=== PATIENT | female | born 1970 | race Caucasian/White ===

== ENCOUNTER 2017-02-26 20:43 | Emergency (ER) | payer MEDICARE ==
[~2017-02-26 20:43] MED LIST: ANTIVERT12.5 MG PO; NEXIUM40 MG PO; PHENERGAN25 M1 PO; PROAIR HFA8.5 GM INH; SOMA350 MG PO; VALIUM10 MG PO; XANAX2 MG PO; ZEBETA5 MG PO; ZESTORETIC 20/21 TAB PO
== END 2017-02-26 22:33 | disposition home or self-care (01) ==
LOC: D.ER 20:43
DX: F41.9 Anxiety disorder, unspecified (principal); I10 Essential (primary) hypertension; J45.909 Unspecified asthma, uncomplicated; R45.1 Restlessness and agitation; R53.83 Other fatigue

== ENCOUNTER 2017-02-27 18:39 | Emergency (ER) | payer MEDICARE | END 2017-02-27 22:20 | disposition home or self-care (01) | LOC: D.ER 18:39 | DX: F41.0 Panic disorder [episodic paroxysmal anxiety] (principal); I10 Essential (primary) hypertension ==

== ENCOUNTER 2017-03-02 13:45 | Emergency (ER) | payer MEDICARE ==
[2017-03-02 15:45] LABS: BASOPHILS 0.2 % (0-2); EOSINOPHILS 0.3 % (0-7); HEMATOCRIT 46.1 % (36.0-48.0); HEMOGLOBIN 15.4 g/dL (12-16); IMMATURE GRANULOCYTES 0.2 % (0-5); LYMPHOCYTES 18.4 % (15-50); MCH 27.8 pg (26.0-34.0); MCHC 33.4 g/dL (31.0-37.0); MCV 83.4 fL (80.0-100.0); MEAN PLATELET VOLUME 9.7 fL (7.4-10.4); MONOCYTES 5.3 % (2-11); NEUTROPHILS 75.6 % (40-80); PLATELET COUNT 340 10x3/uL (130-400); RBC 5.53 10x6/uL (4.00-5.40); RDW 14.3 % (11.5-14.5); WBC 12.7 10x3/uL (4.8-10.8)
[2017-03-02 15:47] LABS: HCG URINE NEGATIVE (NEGATIVE)
[2017-03-02 15:53] LABS: APPEARANCE CLEAR (CLEAR); COLOR YELLOW (YELLOW)
[2017-03-02 15:58] LABS: BILIRUBIN NEGATIVE (NEGATIVE); GLUCOSE NEGATIVE (NEGATIVE); KETONE NEGATIVE (NEGATIVE); LEUKOCYTE ESTERASE NEGATIVE (NEGATIVE); NITRITE NEGATIVE (NEGATIVE); PROTEIN NEGATIVE (NEGATIVE); UROBILINOGEN NORMAL (NORMAL)
[2017-03-02 16:00] LABS: ANION GAP 12.9 mmol/L (8-16); BILIRUBIN - TOTAL 0.45 mg/dL (0.2-1.3); CALCIUM 9.3 mg/dL (8.5-10.1); CARBON DIOXIDE 26.9 mmol/L (21.0-32.0); POTASSIUM - SERUM 3.8 mmol/L (3.5-5.1); PROTEIN - SERUM 8.4 g/dL (6.4-8.2)
== END 2017-03-02 19:11 | disposition home or self-care (01) ==
LOC: D.ER 13:45
PROVIDERS: Emergency Medicine
DX: E86.0 Dehydration (principal); B34.9 Viral infection, unspecified; I10 Essential (primary) hypertension

== ENCOUNTER 2017-03-04 12:38 | Observation (INO) | payer MEDICARE ==
[~2017-03-04] VITALS: Ht 165.1 cm; Wt 122.7 kg
--- NOTE | ~2017-03-04 | HP ---
PATIENT: KAUSHAL KILLIAN MEDICAL RECORD: [id number] ACCOUNT: [id number] LOCATION:. D.2117 : 66 ADMISSION DATE: 03/04/17 HISTORY AND PHYSICAL EXAMINATION DIAGNOSIS: Chest pain. HISTORY OF PRESENT ILLNESS: Ms. Killian has no previous cardiac history. No real cardiac risk factors. She began having chest pain radiates to her back up to her jaw. This was yesterday. She has had no recurrences of chest pain, lasted for approximately half hour, troponin is normal. EKG is with no changes. PHYSICAL EXAMINATION: GENERAL APPEARANCE: Well-nourished, well-developed, appears stated age. Level of distress, comfortable. PSYCHIATRIC: Mental status, alert, normal affect. Orientation, oriented to time, place and person. EYES: Lids and conjunctiva, noninjected. No discharge, no pallor. ENT: Lips, teeth, gums, normal dentition. Oropharynx, no cyanosis, no pallor. NECK: Carotid arteries, bilateral normal upstroke, no bruits, no thrills. JUGULAR VEINS: No jugular venous pressure or distention. CERVICAL LYMPH NODES: Nontender, nonenlarged. THYROID: Not enlarged. Nontender. No nodules. LUNGS: Respiratory effort, unlabored. CHEST: Normal curvature. No thoracic deformity. No chest wall tenderness. Percussion, resonant. Auscultation, clear. No wheezes, no rales, no rhonchi. CARDIOVASCULAR: Precordial exam, nondisplaced. No heaves or pericardial thrills. Rate and rhythm, regular. Heart sounds, normal S1, normal S2. No S3, no gallop, no rub. Systolic murmur, not heard. Diastolic murmur, not heard. EXTREMITIES: No cyanosis, no edema. Peripheral pulses, full and equal in all extremities, except as noted. No bruits appreciated. ABDOMEN: Soft, nondistended. Normal aorta. No bruit. Nontender. No masses. Liver, nontender, no hepatomegaly. Spleen, nontender, no splenomegaly. MUSCULOSKELETAL: No joint tenderness. No joint swelling. No erythema. NEUROLOGICAL: Normal gait, normal strength, normal tone. SKIN: Warm and dry. OVERALL IMPRESSION: Most likely this is noncardiac in etiology. We will set her up stress testing as an outpatient. TRANSINT:[id number] Voice Confirmation ID: [id number] DOCUMENT ID: [id number] KARRI CHEW MD CC: [id number] DICTATION DATE: 03/05/17 1144 SLICE PLUG CUTTER OPERATOR: 03/05/17 1154 ADM IN [place] [id number] [place] [id number]
[~2017-03-04 12:38] MED LIST changes: +XANAX1 MG PO; -XANAX2 MG PO
[2017-03-04 13:34] LABS: BASOPHILS 0.3 % (0-2); EOSINOPHILS 0.7 % (0-7); HEMATOCRIT 40.7 % (36.0-48.0); HEMOGLOBIN 13.4 g/dL (12-16); IMMATURE GRANULOCYTES 0.1 % (0-5); LYMPHOCYTES 22.1 % (15-50); MCH 27.5 pg (26.0-34.0); MCHC 32.9 g/dL (31.0-37.0); MCV 83.4 fL (80.0-100.0); MEAN PLATELET VOLUME 9.7 fL (7.4-10.4); MONOCYTES 9.2 % (2-11); NEUTROPHILS 67.6 % (40-80); PLATELET COUNT 293 10x3/uL (130-400); RBC 4.88 10x6/uL (4.00-5.40); WBC 13.9 10x3/uL (4.8-10.8)
[2017-03-04 13:47] LABS: ALBUMIN 3.3 g/dL (3.4-5.0); ALKALINE PHOSPHATASE 82 U/L (46-116); ALT (SGPT) 52 U/L (10-68); BILIRUBIN - TOTAL 0.27 mg/dL (0.2-1.3); CALC OSMOLALITY 275 mosm/kg (275-300); CALCIUM 8.4 mg/dL (8.5-10.1); CARBON DIOXIDE 27.9 mmol/L (21.0-32.0); CHLORIDE - SERUM 100 mmol/L (98-107); CREATININE - SERUM 0.8 mg/dL (0.6-1.3); GLUCOSE 121 mg/dL (74-106); POTASSIUM - SERUM 3.6 mmol/L (3.5-5.1); SODIUM 138 mmol/L (136-145); UREA NITROGEN 11 mg/dL (7-18); eGFR NON AFRICAN AMERICAN 81 mL/min (90-120)
[2017-03-04 13:58] LABS: CKMB 0.4 U/L (0.0-3.6); CREATINE KINASE 174 UL (21-215); TROPONIN-I < 0.017 ng/mL (0.000-0.060)
--- NOTE | 2017-03-04 16:31 | NUR ---
TRANSFER FROM ER BY W/C. ERICAINTED TO ROOM. CALL LIGHT IN REACH. WILL CONT. PLAN OF CARE.
[2017-03-04 16:37] VITALS: BP 124/76
[2017-03-04 16:48] VITALS: BP 116/90; Ht 165.1 cm; Wt 122.7 kg
[2017-03-04] MEDS ORDERED: DEXILANT60 MG PO (16:54)
[2017-03-04] MEDS ORDERED: NORCO 7.5/325 T1 TA1 PO (16:59)
[2017-03-04] MEDS ORDERED: MECLIZINE HCL25 MG PO (17:00)
[2017-03-04 19:00] VITALS: BP 106/77
[2017-03-04 20:28] LABS: CKMB 0.3 U/L (0.0-3.6); CREATINE KINASE 165 UL (21-215)
[2017-03-04 20:32] LABS: TROPONIN-I < 0.017 ng/mL (0.000-0.060)
[2017-03-04 20:34] LABS: APPEARANCE CLEAR (CLEAR); BILIRUBIN NEGATIVE (NEGATIVE); COLOR YELLOW (YELLOW); GLUCOSE NEGATIVE (NEGATIVE); KETONE NEGATIVE (NEGATIVE); LEUKOCYTE ESTERASE NEGATIVE (NEGATIVE); NITRITE NEGATIVE (NEGATIVE); PROTEIN NEGATIVE (NEGATIVE); SPECIFIC GRAVITY 1.005 (1.005-1.020); UROBILINOGEN NORMAL (NORMAL)
--- NOTE | 2017-03-04 22:00 | NUR ---
PT C/O HEADACHE, STATES USUALLY TAKES NORCO 7.5/325 MG PO FOR HEADACHE. NORCO ORDERED AND GIVEN AT THIS TIME. RATES PAIN @ 6/10 ON PAIN SCALE. WILL CONT TO MONITOR.
[2017-03-05 03:11] LABS: CKMB 0.4 U/L (0.0-3.6); CREATINE KINASE 124 UL (21-215)
[2017-03-05 03:12] LABS: TROPONIN-I < 0.017 ng/mL (0.000-0.060)
[2017-03-05 04:00] VITALS: BP 106/68
--- NOTE | 2017-03-05 07:51 | NUR ---
HR INCREASES TO 152 WHILE UP AMBULATING. STATES DIZZINES. ASSISTED BACK TO BED. HR DEACREASED TO 85. B/P 125/72. WILL CONT. TO MONITOR.
[2017-03-05 08:58] VITALS: BP 116/84
[2017-03-05 11:53] VITALS: BP 125/80
--- NOTE | 2017-03-05 12:00 | NUR ---
DR. CHEW NOTIFIED OF HR INCREASING TO 150 WHEN UP AMBULATING WITH PVCS NOTED. NO RX GIVEN.
--- NOTE | 2017-03-05 14:06 | NUR ---
IV AND TELEMETRY DCD. DC PLANS GIVEN. UNDERSTANDING VOICED. ESCORTED TO CAR BY W/C.
== END 2017-03-05 14:09 | disposition home or self-care (01) ==
LOC: D.ER 12:38 → D.M2 15:40 → OBSVTIME 15:40 → D.M2 03-05 14:09
PROVIDERS: Emergency Medicine; ADMIT Internal Medicine Interventional Cardiology
DX: R07.9 Chest pain, unspecified (principal); I10 Essential (primary) hypertension; F41.9 Anxiety disorder, unspecified

== ENCOUNTER 2017-03-05 18:36 | Emergency (ER) | payer MEDICARE ==
[2017-03-04 16:48] VITALS: BMI 45.0
--- NOTE | ~2017-03-05 | DS ---
PATIENT:KAUSHAL KILLIAN :66 MEDICAL RECORD: [id number] DISCHARGE SUMMARY ADMISSION DATE: 03/05/17 DISCHARGE DATE: 03/05/17 DISCHARGE DIAGNOSIS: Chest pain of unknown etiology. HOSPITAL COURSE: Mrs. Killian presented with chest pain, normal troponin, normal EKG, no further chest pain after the initial episode. We will set her up stress testing as an outpatient. TRANSINT:[id number] Voice Confirmation ID: [id number] DOCUMENT ID: [id number] KARRI CHEW MD CC: [id number] DICTATION DATE: 03/05/17 1144 SOLUTIONS DEVELOPER: 03/05/17 2217 DEP ER 03/05/17 [place] [id number] [place] [id number]
[~2017-03-05 18:36] MED LIST changes: +DEXILANT60 MG PO; +MECLIZINE HCL25 MG PO; +NORCO 7.5/325 T1 TA1 PO
[2017-03-05 19:31] LABS: BASOPHILS 0.3 % (0-2); EOSINOPHILS 0.5 % (0-7); HEMATOCRIT 42.1 % (36.0-48.0); IMMATURE GRANULOCYTES 0.3 % (0-5); LYMPHOCYTES 20.8 % (15-50); MCH 27.7 pg (26.0-34.0); MCHC 33.3 g/dL (31.0-37.0); MCV 83.2 fL (80.0-100.0); MEAN PLATELET VOLUME 9.9 fL (7.4-10.4); MONOCYTES 7.8 % (2-11); NEUTROPHILS 70.3 % (40-80); PLATELET COUNT 341 10x3/uL (130-400); RBC 5.06 10x6/uL (4.00-5.40); RDW 14.3 % (11.5-14.5); WBC 15.7 10x3/uL (4.8-10.8)
[2017-03-05 19:49] LABS: APPEARANCE HAZY (CLEAR); BILIRUBIN NEGATIVE (NEGATIVE); COLOR YELLOW (YELLOW); GLUCOSE NEGATIVE (NEGATIVE); KETONE NEGATIVE (NEGATIVE); LEUKOCYTE ESTERASE TRACE (NEGATIVE); NITRITE NEGATIVE (NEGATIVE); PROTEIN NEGATIVE (NEGATIVE); UROBILINOGEN NORMAL (NORMAL)
[2017-03-05 19:50] LABS: ALBUMIN 3.5 g/dL (3.4-5.0); ALKALINE PHOSPHATASE 85 U/L (46-116); BILIRUBIN - TOTAL 0.27 mg/dL (0.2-1.3); CALCIUM 8.6 mg/dL (8.5-10.1); CARBON DIOXIDE 26.4 mmol/L (21.0-32.0); CHLORIDE - SERUM 99 mmol/L (98-107); GLUCOSE 129 mg/dL (74-106); POTASSIUM - SERUM 3.3 mmol/L (3.5-5.1); PROTEIN - SERUM 7.4 g/dL (6.4-8.2); SODIUM 137 mmol/L (136-145)
[2017-03-05 19:57] LABS: BACTERIA MODERATE /hpf (NONE SEEN); RED CELLS - URINE OCC /hpf (0-5)
[2017-03-05 19:58] LABS: GRANULAR CAST OCC /lpf (NONE SEEN); HYALINE CAST 0-5 /lpf (NONE SEEN); MUCUS <1+ /lpf (NONE SEEN)
[2017-03-05 19:59] LABS: CHOL - HDL RATIO 4.1 ratio (2.3-4.1); CHOLESTEROL, TOTAL 161 mg/dL (0-200); CKMB 0.2 U/L (0.0-3.6); CREATINE KINASE 101 UL (21-215); HDL CHOLESTEROL 39 mg/dL (32-96); LDL CHOLESTEROL 94 mg/dL (0-100); LDL-HDL RATIO 2.4 ratio (1.5-3.5); LIPASE 138 U/L (73-393); TRIGLYCERIDE 142 mg/dL (30-200)
[2017-03-05 20:00] LABS: ALT (SGPT) 69 U/L (10-68); CALC OSMOLALITY 278 mosm/kg (275-300); CREATININE - SERUM 1.1 mg/dL (0.6-1.3); TROPONIN-I < 0.017 ng/mL (0.000-0.060); UREA NITROGEN 20 mg/dL (7-18); eGFR NON AFRICAN AMERICAN 56 mL/min (90-120)
== END 2017-03-05 22:25 | disposition home or self-care (01) ==
LOC: D.ER 18:36
PROVIDERS: Emergency Medicine
DX: R07.9 Chest pain, unspecified (principal); F41.9 Anxiety disorder, unspecified; R10.9 Unspecified abdominal pain; I10 Essential (primary) hypertension; R00.0 Tachycardia, unspecified

== ENCOUNTER 2017-03-07 02:12 | Emergency (ER) | payer MEDICARE ==
[2017-03-04 16:48] VITALS: BMI 45.0
[2017-03-07 03:01] LABS: BASOPHILS 0.5 % (0-2); HEMATOCRIT 42.4 % (36.0-48.0); HEMOGLOBIN 14.1 g/dL (12-16); IMMATURE GRANULOCYTES 0.3 % (0-5); LYMPHOCYTES 29.6 % (15-50); MCHC 33.3 g/dL (31.0-37.0); MCV 84.3 fL (80.0-100.0); MEAN PLATELET VOLUME 9.9 fL (7.4-10.4); NEUTROPHILS 60.6 % (40-80); PLATELET COUNT 329 10x3/uL (130-400); RBC 5.03 10x6/uL (4.00-5.40); RDW 14.4 % (11.5-14.5); WBC 14.6 10x3/uL (4.8-10.8)
[2017-03-07 03:02] LABS: APPEARANCE CLEAR (CLEAR); BILIRUBIN NEGATIVE (NEGATIVE); COLOR YELLOW (YELLOW); GLUCOSE NEGATIVE (NEGATIVE); KETONE NEGATIVE (NEGATIVE); LEUKOCYTE ESTERASE NEGATIVE (NEGATIVE); NITRITE NEGATIVE (NEGATIVE); PROTEIN NEGATIVE (NEGATIVE); SPECIFIC GRAVITY 1.015 (1.005-1.020); UROBILINOGEN NORMAL (NORMAL)
[2017-03-07 03:03] LABS: ANION GAP 12.3 mmol/L (8-16); CALCIUM 9.3 mg/dL (8.5-10.1); CARBON DIOXIDE 30.3 mmol/L (21.0-32.0); CREATININE - SERUM 0.9 mg/dL (0.6-1.3); POTASSIUM - SERUM 3.6 mmol/L (3.5-5.1)
== END 2017-03-07 03:25 | disposition home or self-care (01) ==
LOC: D.ER 02:12
PROVIDERS: Emergency Medicine
DX: R53.1 Weakness (principal)

== ENCOUNTER 2017-03-07 12:18 | Emergency (ER) | payer MEDICARE ==
[2017-03-04 16:48] VITALS: BMI 45.0
== END 2017-03-07 12:19 | disposition left against medical advice (07) ==
LOC: D.ER 12:18
DX: R53.1 Weakness (principal); I10 Essential (primary) hypertension

== ENCOUNTER 2017-03-08 08:29 | Emergency (ER) | payer MEDICARE ==
[2017-03-04 16:48] VITALS: BMI 45.0
[2017-03-08 09:24] LABS: BASOPHILS 0.4 % (0-2); EOSINOPHILS 1.4 % (0-7); HEMATOCRIT 40.8 % (36.0-48.0); HEMOGLOBIN 13.4 g/dL (12-16); IMMATURE GRANULOCYTES 0.2 % (0-5); LYMPHOCYTES 26.1 % (15-50); MCH 27.6 pg (26.0-34.0); MCHC 32.8 g/dL (31.0-37.0); MCV 84.1 fL (80.0-100.0); MEAN PLATELET VOLUME 9.8 fL (7.4-10.4); NEUTROPHILS 63.9 % (40-80); PLATELET COUNT 311 10x3/uL (130-400); RBC 4.85 10x6/uL (4.00-5.40); RDW 14.5 % (11.5-14.5); WBC 11.1 10x3/uL (4.8-10.8)
[2017-03-08 09:32] LABS: ALBUMIN 3.5 g/dL (3.4-5.0); ALKALINE PHOSPHATASE 71 U/L (46-116); ALT (SGPT) 41 U/L (10-68); CALC OSMOLALITY 281 mosm/kg (275-300); CARBON DIOXIDE 30.1 mmol/L (21.0-32.0); CHLORIDE - SERUM 103 mmol/L (98-107); CREATININE - SERUM 0.8 mg/dL (0.6-1.3); GLUCOSE 120 mg/dL (74-106); POTASSIUM - SERUM 3.9 mmol/L (3.5-5.1); PROTEIN - SERUM 6.9 g/dL (6.4-8.2); SODIUM 141 mmol/L (136-145); UREA NITROGEN 13 mg/dL (7-18); eGFR NON AFRICAN AMERICAN 81 mL/min (90-120)
[2017-03-08 11:41] LABS: APPEARANCE CLEAR (CLEAR); BACTERIA FEW /hpf (NONE SEEN); BILIRUBIN NEGATIVE (NEGATIVE); COLOR YELLOW (YELLOW); EPITHELIAL CELLS 0-5 /hpf (0-5); GLUCOSE NEGATIVE (NEGATIVE); KETONE NEGATIVE (NEGATIVE); LEUKOCYTE ESTERASE TRACE (NEGATIVE); MUCUS <1+ /lpf (NONE SEEN); NITRITE NEGATIVE (NEGATIVE); PROTEIN NEGATIVE (NEGATIVE); UROBILINOGEN NORMAL (NORMAL); WHITE CELLS - URINE 0-5 /hpf (0-5)
== END 2017-03-08 12:00 | disposition home or self-care (01) ==
LOC: D.ER 08:29
PROVIDERS: Emergency Medicine
DX: E86.0 Dehydration (principal); I10 Essential (primary) hypertension

== ENCOUNTER 2018-02-04 01:02 | Emergency (ER) | payer MEDICARE ==
[~2018-02-04] VITALS: Ht 165.1 cm; Wt 127.9 kg
[2018-02-04 01:34] VITALS: Ht 165.1 cm; Wt 127.9 kg
[2018-02-04] MEDS ORDERED: KEFLEX500 MG (01:38)
[2018-02-04 02:13] LABS: APPEARANCE CLEAR (CLEAR); BILIRUBIN NEGATIVE (NEGATIVE); COLOR YELLOW (YELLOW); GLUCOSE NEGATIVE (NEGATIVE); KETONE NEGATIVE (NEGATIVE); NITRITE NEGATIVE (NEGATIVE); PROTEIN NEGATIVE (NEGATIVE); SPECIFIC GRAVITY 1.015 (1.005-1.020); UROBILINOGEN NORMAL (NORMAL)
[2018-02-04] MEDS ORDERED: NORCO 7.5/325 T1 TA1 PO (02:33)
[2018-02-04 02:50] VITALS: BP 136/78
== END 2018-02-04 02:51 | disposition home or self-care (01) ==
LOC: D.ER 01:02
PROVIDERS: Emergency Medicine
DX: M79.1 Myalgia (principal); R35.0 Frequency of micturition; R30.0 Dysuria; R39.15 Urgency of urination

== ENCOUNTER 2018-02-05 03:07 | Emergency (ER) | payer MEDICARE ==
[~2018-02-05] VITALS: Ht 165.1 cm; Wt 127.3 kg
[~2018-02-05 03:07] MED LIST changes: +KEFLEX500 MG
[2018-02-05 03:16] VITALS: Ht 165.1 cm; Wt 127.3 kg
[2018-02-05 06:18] VITALS: BP 150/90
== END 2018-02-05 06:19 | disposition home or self-care (01) ==
LOC: D.ER 03:07
DX: F13.239 Sedative, hypnotic or anxiolytic dependence with withdrawal, unspecified (principal); F41.9 Anxiety disorder, unspecified